=== PATIENT | male | born 1950 | race Caucasian/White ===

== ENCOUNTER 2017-07-15 14:13 | Day surgery (SDC) | payer MEDICARE ==
[2017-07-15] VITALS (7 sets, daily range): BP systolic 122–153; BP diastolic 66–107
[~2017-07-15] VITALS: Ht 177.8 cm; Wt 99.0 kg
[~2017-07-15 14:13] MED LIST: ALBU6.7H INH; ASPI-1009 PO; ATOR40TA PO; BISO1TAB12 PO; CLON-528 PO; FENO145T38 PO; FISH OIL 1,2001 EAC1 PO; HYDR-3965 PO; LISI-222 PO; ORPH100T2 PO; SILD100T PO; VALS1TAB81 PO
[2017-07-15] MEDS ORDERED: MULT1TAB74 PO (15:00)
[2017-07-15] MEDS ORDERED: METF500T PO (15:00)
[2017-07-15] MEDS ORDERED: METO100T7 PO (15:00)
[2017-07-15] MEDS ORDERED: HYDR-565 PO (15:00)
[2017-07-15] MEDS ORDERED: LORazepam 0.5 MG tablet PO PRN (15:25)
[2017-07-15] MEDS ORDERED: diphenhydrAMINE 25mg capsule PO PRN (15:25)
[2017-07-15] MEDS ORDERED: normal saline 1000ml 1,000 ML IV SCH (15:25)
[2017-07-15] MEDS ORDERED: fentaNYL/PF 50MCG/1 ML 2ML syringe ONE (16:21)
[2017-07-15] MEDS ORDERED: LIDOcaine 1%/PF (10mg/ml) 5ml vial ONE (16:21)
[2017-07-15] MEDS ORDERED: midazolam 2 mg/2 ml injection ONE (16:21)
[2017-07-15] MEDS ORDERED: iohexol 350MG/ML 100ml bottle IV ONE (16:21)
[2017-07-15] MEDS ORDERED: iohexol 350 MG/ML 50ML vial IV ONE (16:56)
[2017-07-15] MEDS ORDERED: HYDROcodone/acetaminophen 10/325mg tab PO PRN (18:05)
[2017-07-15] MEDS ORDERED: HYDROcodone/acetaminophen 5mg/325mg tablet PO PRN (18:05)
[2017-07-15] MEDS ORDERED: ondansetron/PF 4mg/2ml inj IV PRN (18:05)
[2017-07-15] MEDS ORDERED: OXAZEpam 15mg capsule PO PRN (18:05)
[2017-07-15] MEDS ORDERED: proCHLORperazine 10 MG/2 ml inj IV PRN (18:05)
== END 2017-07-15 19:30 | disposition home or self-care (01) ==
LOC: SSTAY O 14:13
PROVIDERS: ATTEND Internal Medicine Interventional Cardiology
DX: I25.10 Atherosclerotic heart disease of native coronary artery without angina pectoris (principal); E11.9 Type 2 diabetes mellitus without complications; I10 Essential (primary) hypertension; B19.20 Unspecified viral hepatitis C without hepatic coma; E78.5 Hyperlipidemia, unspecified; I65.23 Occlusion and stenosis of bilateral carotid arteries; G89.29 Other chronic pain; F17.210 Nicotine dependence, cigarettes, uncomplicated; K21.9 Gastro-esophageal reflux disease without esophagitis; Z95.1 Presence of aortocoronary bypass graft; Z95.5 Presence of coronary angioplasty implant and graft; Z86.79 Personal history of other diseases of the circulatory system; Z79.82 Long term (current) use of aspirin; Z79.891 Long term (current) use of opiate analgesic; Z79.84 Long term (current) use of oral hypoglycemic drugs; Z79.899 Other long term (current) drug therapy; Z98.890 Other specified postprocedural states
CPT/HCPCS: 82948; 93005; 93459; 99152; 99153; C1769; J1644; J2001; J2250; J3010; J7030; Q0163; Q9967; A4620

== ENCOUNTER 2021-10-09 14:11 | Emergency (ER) | payer MEDICARE ==
[~2021-10-09] VITALS: Ht 175.3 cm; Wt 79.5 kg
[~2021-10-09 14:11] MED LIST changes: -ALBU6.7H INH; -BISO1TAB12 PO; -FENO145T38 PO; -FISH OIL 1,2001 EAC1 PO; -HYDR-3965 PO; +HYDR-4353 PO; -LISI-222 PO; +METF500T PO; +METO100T7 PO; +MULT-620 PO; -ORPH100T2 PO
[2021-10-09 14:52] LABS: BASOPHILS # (AUTO) 0.1 X10'3 (0-0.2); BASOPHILS % (AUTO) 0.6 % (0-1); EOSINOPHILS # (AUTO) 0.2 X10'3 (0-0.9); EOSINOPHILS % (AUTO) 1.6 % (0-6); HEMATOCRIT 43.1 % (42.0-52.0); HEMOGLOBIN 14.2 g/dl (14.0-17.9); LYMPHOCYTES % (AUTO) 17.5 % (21-51); MEAN CORPUSCULAR HEMOGLOBIN 29.7 PG (27.0-31.0); MEAN CORPUSCULAR HGB CONC 32.9 g/dL (33.0-36.5); MEAN CORPUSCULAR VOLUME 90.2 FL (78-98); MEAN PLATELET VOLUME 8.5 FL (7.4-10.4); MONOCYTES # (AUTO) 0.8 X10'3 (0-0.9); MONOCYTES % (AUTO) 6.9 % (2-12); NEUTROPHILS # (AUTO) 8.5 X10'3 (1.8-7.7); NEUTROPHILS % (AUTO) 73.4 % (42-75); PLATELET COUNT 183 X10'3 (140-440); RED BLOOD COUNT 4.78 X10'6 (4.70-6.10); RED CELL DISTRIBUTION WIDTH 15.8 % (11.5-14.5); WHITE BLOOD COUNT 11.6 X10'3 (4.5-11.0)
[2021-10-09 15:03] LABS: ALANINE AMINOTRANSFERASE 55 U/L (12-78); ALBUMIN 3.9 G/DL (3.4-5.0); ALBUMIN/GLOBULIN RATIO 1.3 (1.1-1.5); ALKALINE PHOSPHATASE 75 IU/L (46-116); ANION GAP 8 (8-16); ASPARTATE AMINO TRANSFERASE 30 U/L (10-37); BILIRUBIN,TOTAL 0.3 MG/DL (0.1-1.0); BLOOD UREA NITROGEN 16 MG/DL (7-18); BUN/CREATININE RATIO 14.8 (5.4-32.0); CALCIUM 8.6 MG/DL (8.5-10.1); CHLORIDE 107 MMOL/L (99-107); CREATININE 1.08 MG/DL (0.60-1.10); GLUCOSE 113 MG/DL (70-104); POTASSIUM 3.9 MMOL/L (3.5-5.1); SODIUM 142 MMOL/L (135-145); TOTAL CARBON DIOXIDE 26.9 MMOL/L (24-32); eGFR 68 ML/MIN
--- NOTE | 2021-10-09 15:47 | NUR ---
CALLED [employer] AT [phone] AND SPEAK TO FLORA FOR PACEMAKER INTERGOATION PER HER THE REPRESENTIVITIVE WILL CONTACT US SOON POSSIBLE.
--- NOTE | 2021-10-09 16:08 | NUR ---
PACEMAKER REPORT IS GETTING FAXED AT THIS TIME.
[2021-10-09 17:35] VITALS: BP 147/92
== END 2021-10-09 17:51 | disposition home or self-care (01) ==
LOC: ER 14:11
DX: R55 Syncope and collapse (principal); R53.83 Other fatigue; R11.0 Nausea; I25.10 Atherosclerotic heart disease of native coronary artery without angina pectoris; I10 Essential (primary) hypertension; I25.2 Old myocardial infarction; E11.9 Type 2 diabetes mellitus without complications; F17.200 Nicotine dependence, unspecified, uncomplicated; F12.90 Cannabis use, unspecified, uncomplicated; Z98.890 Other specified postprocedural states; Z95.0 Presence of cardiac pacemaker; Z79.82 Long term (current) use of aspirin; Z79.899 Other long term (current) drug therapy
CPT/HCPCS: 36415; 71045; 80053; 83880; 84484; 85025; 93005; 99285; J7040